=== PATIENT | male | born 1985 | race African-American/Black ===

== ENCOUNTER 2023-10-12 02:32 | Day surgery (SDC) | payer MEDICAID ==
[~2023-10-12] VITALS: Ht 193 cm; Wt 136.0 kg
[2023-10-12 02:42] VITALS: TEMP 98.6; O2SAT 100
[2023-10-12 03:43] LABS: BASOPHILS % 0.4 % (0.0-2.0); EOSINOPHILS % 0.9 % (0.0-5.0); HEMATOCRIT. 46.7 % (42.0-52.0); HEMOGLOBIN. 15.9 g/dL (14.0-18.0); LYMPHOCYTES % 14.6 % (20.0-50.0); MEAN CORPUSCULAR HEMOGLOBIN 30.7 pg (28.0-32.0); MEAN CORPUSCULAR HGB CONC 34.1 g/dL (31.0-37.0); MEAN CORPUSCULAR VOLUME 90.2 fL (80.0-94.0); MEAN PLATELET VOLUME 8.9 fl (7.4-10.4); MONOCYTES % 9.2 % (2.0-8.0); NEUTROPHILS % 74.9 % (40.0-76.0); PLATELET 248 x1000/uL (130-400); RED BLOOD CELL COUNT 5.17 mill/uL (4.7-6.1); RED CELL DISTRIBUTION WIDTH 13.9 % (11.6-14.6); WHITE BLOOD COUNT 9.9 x1000/uL (4.5-11.0)
[2023-10-12 04:01] LABS: CARBON DIOXIDE 29 mEq/L (21-32); CHLORIDE 102 mEq/L (98-107); POTASSIUM 4.1 mEq/L (3.5-5.1); SODIUM 136 mEq/L (136-145)
[2023-10-12 04:02] LABS: ALANINE AMINOTRANSFERASE 30 IU/L (10-49); ALBUMIN 4.5 g/dL (3.2-4.8); ASPARTATE AMINOTRANSFERASE 21 IU/L (<34); CALCIUM 9.8 mg/dL (8.7-10.4); GLUCOSE 86 mg/dL (70-105); PROTEIN TOTAL 7.3 g/dL (6.0-8.3); UREA NITROGEN BLOOD 7 mg/dL (9-23)
[2023-10-12 06:02] LABS: CLARITY URINE CLEAR (CLEAR); COLOR URINE YELLOW (YELLOW); GLUCOSE URINE NEGATIVE (NEGATIVE); KETONES URINE NEGATIVE (NEGATIVE); LEUKOCYTE ESTERASE URINE NEGATIVE (NEGATIVE); NITRITE URINE NEGATIVE (NEGATIVE); OCCULT BLOOD URINE NEGATIVE (NEGATIVE); PROTEIN URINE NEGATIVE (NEGATIVE); SPECIFIC GRAVITY URINE 1.019 (1.005-1.030)
[2023-10-12 09:00] VITALS: BP 120/84; PULSE 99; RESP 16
[2023-10-12] MEDS: KETOROLAC 60MG/2ML VIAL IM ONE (09:00)
[2023-10-12] MEDS ORDERED: MORPHINE SULFATE 4 MG/ML CPJ (NOT FOR IM USE) IV STA (10:39)
[2023-10-12] MEDS ORDERED: ONDANSETRON HCL 4MG/2ML INJ IV STA (10:39)
[2023-10-12] MEDS ORDERED: SODIUM CHLORIDE 0.9% 1,000 ML IV ONE (10:45)
[2023-10-12] MEDS ORDERED: CEFOXITIN SODIUM 2 G in DEXT 5% WATER 100 ML IV SCH (10:45)
[2023-10-12] MEDS ORDERED: BUPIVACAINE HCL/PF 0.5% (5MG/ML) 10ML ONE (11:41)
[2023-10-12] MEDS ORDERED: SKIN ADHESIVE 0.7 GM EA TOP ONE (11:41)
[2023-10-12] MEDS ORDERED: CEFAZOLIN SODIUM 1000MG/VIAL ONE (11:44)
[2023-10-12] MEDS ORDERED: ONDANSETRON HCL 4MG/2ML INJ ONE (11:44)
[2023-10-12] MEDS ORDERED: DEXAMETHASONE 4MG/ML 1ML VIAL ONE (11:44)
[2023-10-12] MEDS ORDERED: GLYCOPYRROLATE 0.2 MG/ML 2ML VIAL ONE ×2 (11:45)
[2023-10-12] MEDS ORDERED: ROCURONIUM BROMIDE 10MG/ML VIAL 5ML IV ONE (11:45)
[2023-10-12] MEDS ORDERED: NEOSTIGMINE METHYLSULFATE 1MG/ML 10 ML VIAL ONE (11:45)
[2023-10-12] MEDS ORDERED: PROPOFOL 200MG/20ML VIAL IV ONE (11:45)
[2023-10-12] MEDS ORDERED: MIDAZOLAM HCL 2 MG/2 ML VIAL ONE (11:46)
[2023-10-12] MEDS ORDERED: FENTANYL CITRATE/PF 50MCG/ML 2ML VIAL ONE (11:46)
[2023-10-12] MEDS ORDERED: HYDROMORPHONE HCL/PF 2MG/ML CPJ ONE (12:24)
[2023-10-12] MEDS ORDERED: CLONIDINE 0.1MG TABLET PO PRN (12:45)
[2023-10-12] MEDS ORDERED: IPRATROPIUM/ALBUTEROL 0.5-3(2.5)MG/3ML NEB HHN PRN (12:45)
[2023-10-12] MEDS ORDERED: ONDANSETRON HCL 4MG/2ML INJ IV PRN ×3 (12:45)
[2023-10-12] MEDS ORDERED: LABETALOL 5MG/ML SYR 20 MG/4 ML SYRINGE IV PRN ×2 (12:45)
[2023-10-12] MEDS ORDERED: MEPERIDINE HCL/PF 25MG/ML CPJ IV PRN ×2 (12:45)
[2023-10-12] MEDS ORDERED: ACETAMINOPHEN 325MG TABLET PO PRN ×2 (12:45)
[2023-10-12] MEDS ORDERED: HYDROMORPHONE HCL/PF 2MG/ML CPJ IV PRN ×2 (12:45)
[2023-10-12] MEDS ORDERED: SODIUM CHLORIDE 0.9% 1,000 ML IV SCH (13:00)
== END 2023-10-12 15:00 | disposition home or self-care (01) ==
LOC: ER 02:32 → EDBEDREQ 11:28 → EDBEDREQTM 11:28 → ER 12:41 → OR 13:20 → CANBEDREQ 17:36
PROVIDERS: ATTEND Surgery
DX: K36 Other appendicitis (principal); E66.9 Obesity, unspecified; Z68.36 Body mass index [BMI] 36.0-36.9, adult; Z79.899 Other long term (current) drug therapy; Z98.890 Other specified postprocedural states
CPT/HCPCS: 44970; 80053; 81003; 83690; 85025; 36415; 88304; 74176; 99285; J3010; J3490 ×3; J0690; J1100; J1885; J2250; J2405; J2704; J1170; J7030 ×2; J2710; J0694; J7060